=== PATIENT | male | born 1970 | race American Indian/Alaskan Native ===

== ENCOUNTER 2018-07-17 09:14 | Inpatient (IN) | payer OTHER ==
[2018-07-17 09:54] LABS: BASO % 0.8 % (0.0-2.0); EOS # 0.1 K/uL (0.0-0.7); HEMOGLOBIN 13.7 g/dL (12.0-18.0); LYMPH # 1.7 K/uL (1.0-4.3); LYMPH % 28.2 % (20.0-40.0); MEAN CELL VOLUME 95.9 fL (80.0-94.0); MEAN CORPUSCULAR HEMOGLOBIN 31.5 pg (27.0-31.0); MEAN CORPUSCULAR HGB CONC 32.8 g/dL (33.0-37.0); MEAN PLATELET VOLUME 8.5 fL (7.2-11.7); MONO # 1.1 K/uL (0.0-0.8); MONO % 17.4 % (0.0-10.0); NEUT # 3.2 K/uL (1.8-7.0); NEUT % 51.6 % (50.0-75.0); RBC 4.33 Mil/uL (4.40-5.90); RED CELL DISTRIBUTION WIDTH 13.5 % (11.5-14.5); WHITE BLOOD COUNT 6.2 K/uL (4.8-10.8)
[2018-07-17 10:06] LABS: ALB/GLOB RATIO 1.6 (1.0-2.1); ALBUMIN 4.4 g/dL (3.5-5.0); ALT/SGPT 29 U/L (21-72); AST/SGOT 36 U/L (17-59); BLOOD UREA NITROGEN 16 mg/dL (9-20); CALCIUM 9.1 mg/dl (8.6-10.4); GFR NON-AFRICAN AMERICAN > 60
[2018-07-17 10:08] LABS: PROTHROMBIN TIME 11.1 SECONDS (9.7-12.2)
[2018-07-17] MEDS ORDERED: ceFAZolin IV 1 gm in Dextrose 1 GM/50 ML BAG IVPB ONE (10:10)
--- NOTE | 2018-07-17 10:17 | C.PDOC ---
History Of Present Illness 47 y/o male,w/ no si presents to the ER for evaluation of sebaceous cyst on scalp. Patient states that he was referred by to the ER because he is scheduled for cyst removal in the OR today. Patient denies having fever and chills. Time Seen by Provider: 07/17/18 09:21 Chief Complaint (Nursing): Medical Clearance History Per: Patient History/Exam Limitations: no limitations Onset/Duration Of Symptoms: Days Current Symptoms Are (Timing): Still Present Severity: Moderate Past Medical History Reviewed: Historical Data, Nursing Documentation, Vital Signs Vital Signs: Last Vital Signs Temp 98.2 F 07/17/18 09:34 Pulse 64 07/17/18 09:34 Resp 18 07/17/18 09:34 BP 124/66 07/17/18 09:34 Pulse Ox 97 07/17/18 09:34 - Medical History PMH: No Chronic Diseases Surgical History: No Surg Hx Family History: States: No Known Family Hx - Social History Hx Alcohol Use: Yes Hx Substance Use: Yes - Immunization History Hx Tetanus Toxoid Vaccination: No Hx Influenza Vaccination: No Hx Pneumococcal Vaccination: No Review Of Systems Except As Marked, All Systems Reviewed And Found Negative. Constitutional: Negative for: Fever, Chills Skin: Positive for: Other (sebaceous cyst to scalp) Physical Exam - Physical Exam Appears: Non-toxic, No Acute Distress Skin: Warm, Dry Head: Normacephalic, Other (large 3 cn cyst on parietal scalp, no tenderness) Eye(s): bilateral: Normal Inspection Nose: Normal Oral Mucosa: Moist Neck: Supple Chest: Symmetrical Cardiovascular: Rhythm Regular Respiratory: Normal Breath Sounds, No Rales, No Rhonchi, No Wheezing Gastrointestinal/Abdominal: Normal Exam, Soft, No Tenderness, No Guarding, No Rebound Neurological/Psych: Oriented x3, Normal Speech ED Course And Treatment - Laboratory Results Result Diagrams: 07/17/18 09:49 07/17/18 09:49 Lab Results: PT 11.1 SECONDS (9.7-12.2) 07/17/18 09:49 INR 1.0 07/17/18 09:49 APTT 35 SECONDS (21-34) H 07/17/18 09:49 Total Bilirubin 0.5 mg/dL (0.2-1.3) 07/17/18 09:49 AST 36 U/L (17-59) 07/17/18 09:49 ALT 29 U/L (21-72) 07/17/18 09:49 Alkaline Phosphatase 49 U/L (38-126) 07/17/18 09:49 Total Protein 7.1 g/dL (6.3-8.3) 07/17/18 09:49 Albumin 4.4 g/dL (3.5-5.0) 07/17/18 09:49 Globulin 2.8 gm/dL (2.2-3.9) 07/17/18 09:49 Albumin/Globulin Ratio 1.6 (1.0-2.1) 07/17/18 09:49 O2 Sat by Pulse Oximetry: 97 (RA) Pulse Ox Interpretation: Normal Medical Decision Making Medical Decision Making: Plan: --Labs --Ancef IV Disposition - Disposition Disposition: HOSPITALIZED Disposition Time: 12:00 Condition: STABLE - POA Present On Arrival: None - Clinical Impression Clinical Impression: Scalp cyst - PA / MOSAIC TECHNICIAN / Resident Statement MD/DO has reviewed & agrees with the documentation as recorded. - Scribe Statement The provider has reviewed the documentation as recorded by the Scribe Aiden Vargas Provider Attestation All medical record entries made by the Scribe were at my direction and personally dictated by me. I have reviewed the chart and agree that the record accurately reflects my personal performance of the history, physical exam, medical decision making, and the department course for this patient. I have also personally directed, reviewed, and agree with the discharge instructions and disposition.
[2018-07-17] MEDS ORDERED: Propofol 10 mg/ml Inj (20 ML) ONE ×2 (13:59→14:29)
[2018-07-17] MEDS ORDERED: Midazolam 2 MG/2 ML VIAL ONE (13:59)
[2018-07-17] MEDS: ceFAZolin 1 gm in NS 1 GM/100 ML BAG IVPB ONE ×2 (14:00→14:27)
[2018-07-17] MEDS ORDERED: Bupivacaine 0.25% 20 ML INJ IJ ONE (14:05)
[2018-07-17] MEDS ORDERED: HYDROmorphone 0.5 mg/0.5 ml ISec IVP PRN (14:21)
[2018-07-17] MEDS ORDERED: Bacitracin 500 Units/gm Oint Foilpak UD ONE (14:32)
[2018-07-17] MEDS ORDERED: Oxycodone/Acetaminophen 5/325 mg Tab PO PRN (14:36)
[2018-07-17] MEDS ORDERED: Lactated Ringer's 1,000 ML IV ONE (17:00)
[2018-07-17 19:32] VITALS: RESP 20; O2SAT 96
[2018-07-18 06:44] LABS: BASO % 0.4 % (0.0-2.0); EOS # 0.2 K/uL (0.0-0.7); EOS % 2.5 % (0.0-4.0); HEMOGLOBIN 12.9 g/dL (12.0-18.0); LYMPH % 32.1 % (20.0-40.0); MEAN CELL VOLUME 94.6 fL (80.0-94.0); MEAN CORPUSCULAR HEMOGLOBIN 30.8 pg (27.0-31.0); MEAN CORPUSCULAR HGB CONC 32.5 g/dL (33.0-37.0); MEAN PLATELET VOLUME 8.5 fL (7.2-11.7); MONO # 0.9 K/uL (0.0-0.8); NEUT # 3.1 K/uL (1.8-7.0); RBC 4.18 Mil/uL (4.40-5.90); RED CELL DISTRIBUTION WIDTH 13.4 % (11.5-14.5); WHITE BLOOD COUNT 6.2 K/uL (4.8-10.8)
[2018-07-18 06:52] LABS: BLOOD UREA NITROGEN 15 mg/dL (9-20); CALCIUM 8.9 mg/dl (8.6-10.4); GFR NON-AFRICAN AMERICAN > 60
[2018-07-18 08:06] VITALS: BP 107/68; PULSE 70; TEMP 97.6
--- NOTE | 2018-07-18 08:42 | OP ---
PROCEDURE DATE: 07/17/2018 PREOPERATIVE DIAGNOSIS: Infected mass on the scalp. POSTOPERATIVE DIAGNOSIS: Infected mass on the scalp. PROCEDURE PERFORMED: Wide and deep excision of infected mass on the scalp with advancement flap closure. SURGEON: Patrick Viera MD ANESTHESIA: General. BLOOD LOSS: 100 mL. POSTOPERATIVE CONDITION: Stable. INDICATION FOR SURGERY: This is a 47-year-old male who presents with a history of a large mass on his head, which is becoming infected. He now presents for excision. DESCRIPTION OF PROCEDURE: The patient was taken to the operating room. General anesthesia was administered. The scalp area was prepped and draped, and a generous elliptical incision was made surrounding it. The mass was completely down the scalp aponeurosis. Bleeding was controlled using Bovie. The larger branch of the temporal artery was repaired. The wound was irrigated with copious amounts of saline solution. Generous tissue flaps were raised. Counter incisions were made. Advancement flap closure was performed with multiple layers of Monocryl, subcuticular Monocryl, and skin clips. The patient tolerated the procedure well and returned to the recovery room in stable condition. Patrick Viera MD
== END 2018-07-18 09:43 | disposition home or self-care (01) | DRG 578 ==
LOC: C.ER 09:14 → C.3T 09:14 → C.SDS 10:23 → C.9S 14:39 → C.3T 19:35
PROVIDERS: ADMIT Surgery; ATTEND Surgery
PROC: 0HX0XZZ Transfer Scalp Skin, External Approach (ICD-10-PCS; 2018-07-17)
PROC: 0JB00ZZ Excision of Scalp Subcutaneous Tissue and Fascia, Open Approach (ICD-10-PCS; principal; 2018-07-17 17:45)
DX: D23.4 Other benign neoplasm of skin of scalp and neck (principal)

== ENCOUNTER 2018-07-31 09:32 | Day surgery (SDC) | payer OTHER ==
[2018-07-31 09:41] VITALS: BMI 25.7
--- NOTE | 2018-07-31 12:08 | C.PDOC ---
History Of Present Illness 47 year old male sent to ED for OR admission for cyst on the forehead. Patient denies any pain, numbness, or weakness. pt sent to er to go to or for cyst on forehead Time Seen by Provider: 07/31/18 10:03 Chief Complaint (Nursing): Abnormal Skin Integrity History Per: Patient History/Exam Limitations: no limitations Location Of Injury: Right: Face Past Medical History Reviewed: Historical Data, Nursing Documentation, Vital Signs Vital Signs: Last Vital Signs Temp 98.6 F 07/31/18 09:48 Pulse 87 07/31/18 09:48 Resp BP 111/70 07/31/18 09:48 Pulse Ox 98 07/31/18 09:48 - Medical History PMH: No Chronic Diseases Denies: Chronic Kidney Disease - [facility] Procedures EXCISION OF SCALP SUBCU/FASCIA, OPEN APPROACH (07/17/18) TRANSFER SCALP SKIN, EXTERNAL APPROACH (07/17/18) Family History: States: Unknown Family Hx - Social History Hx Alcohol Use: Yes Hx Substance Use: Yes (marijuana) - Immunization History Hx Tetanus Toxoid Vaccination: No Hx Influenza Vaccination: No Hx Pneumococcal Vaccination: No Review Of Systems Constitutional: Negative for: Fever Cardiovascular: Negative for: Chest Pain Respiratory: Negative for: Cough Gastrointestinal: Negative for: Abdominal Pain Physical Exam - Physical Exam Appears: Non-toxic, No Acute Distress Skin: Warm, Dry, Other (dime sized slightly elevated area on right upper forehead, non tender no erythema or warmth) Cardiovascular: Rhythm Regular, No Murmur Respiratory: No Decreased Breath Sounds, No Wheezing Gastrointestinal/Abdominal: Soft, No Tenderness, No Guarding, No Rebound Extremity: No Tenderness, No Swelling ED Course And Treatment O2 Sat by Pulse Oximetry: 98 (in RA) Medical Decision Making Medical Decision Making: pt for OR per Dr Viera Disposition Discussed With : Patrick Viera Doctor Will See Patient In The: Hospital - Disposition Disposition: HOSPITALIZED Disposition Time: 12:09 Condition: GOOD - Clinical Impression Clinical Impression: Dermoid cyst of forehead - PA / FORENSIC MEDICAL EXAMINER / Resident Statement MD/ has reviewed & agrees with the documentation as recorded. (Roopa Novak) - Scribe Statement The provider has reviewed the documentation as recorded by the Scribe (Roopa Novak) All medical record entries made by the Scribe were at my direction and personally dictated by me. I have reviewed the chart and agree that the record accurately reflects my personal performance of the history, physical exam, medical decision making, and the department course for this patient. I have also personally directed, reviewed, and agree with the discharge instructions and disposition.
[2018-07-31] MEDS ORDERED: Midazolam 2 MG/2 ML VIAL ONE (12:54)
[2018-07-31] MEDS ORDERED: Propofol 10 mg/ml Inj (20 ML) ONE (12:54)
[2018-07-31] MEDS ORDERED: Lidocaine Hydrochloride 5 ML INJ ONE (12:55)
[2018-07-31] MEDS ORDERED: Bupivacaine 0.25% 20 ML INJ IJ ONE (13:07)
[2018-07-31] MEDS ORDERED: Lidocaine/Epinephrine 1% 1:100000 10 ML IJ ONE (13:07)
[2018-07-31] MEDS ORDERED: Lidocaine Hydrochloride 0 ML INJ ONE (13:07)
[2018-07-31] MEDS ORDERED: ceFAZolin 1 gm in NS 1 GM/100 ML BAG IVPB ONE (13:08)
[2018-07-31] MEDS ORDERED: HYDROmorphone 0.5 mg/0.5 ml ISec IVP PRN (13:38)
[2018-07-31] MEDS ORDERED: Oxycodone/Acetaminophen 5/325 mg Tab PO PRN (13:42)
[2018-07-31 14:42] VITALS: PULSE 51; RESP 18; TEMP 98
[2018-07-31 15:43] VITALS: BP 93/51
[2018-07-31 19:06] VITALS: O2SAT 98
--- NOTE | 2018-08-01 07:41 | OP ---
PROCEDURE DATE: 07/31/2018 PREOPERATIVE DIAGNOSIS: Infected cyst of the forehead. POSTOPERATIVE DIAGNOSIS: Infected cyst of the forehead. PROCEDURE PERFORMED: Wide and deep excision of infected cyst of the forehead with debridement, drainage and primary flap closure. SURGEON: Patrick Viera MD ANESTHESIA: Local sedation. ESTIMATED BLOOD LOSS: 5 mL. POSTOPERATIVE CONDITION: Stable. INDICATIONS FOR SURGERY: This is a 47-year-old male, presented to the emergency room today with a cyst of his forehead, which was becoming infected. He will now undergo excision and removal. DESCRIPTION OF PROCEDURE: The patient was taken to the operating room and placed in supine position. IV sedation was administered. The forehead area was prepped and draped, and local anesthesia was infiltrated over the mass. Elliptical incision was made. The cyst was encountered, dissected into the fascial space and removed. Bleeding was controlled using the Bovie. Larger blood vessels were repaired. Tissue flaps were raised, counter incisions were made, and a tissue flap closure was performed with multiple layers of Monocryl, subcuticular Monocryl and glue. The patient tolerated the procedure well and was returned to the recovery room in stable condition. Patrick Viera MD
== END 2018-07-31 18:30 | disposition home or self-care (01) ==
LOC: C.ER 09:32 → C.SDS 12:09 → C.9S 13:48 → UNDOADMIN 13:48 → C.SDS 18:30 → UNDODISIN 18:30
PROVIDERS: ATTEND Surgery
DX: L72.9 Follicular cyst of the skin and subcutaneous tissue, unspecified (principal)
CPT/HCPCS: 11441; 88307; 99285; J0690; J2250; J2704; J3010